=== PATIENT | female | born 1985 | race Caucasian/White ===

== ENCOUNTER 2025-01-17 06:47 | Day surgery (SDC) | payer OTHER ==
[2025-01-15 13:22] VITALS: BMI 25.4
[2025-01-15 13:33] LABS: Hematocrit 39.1 % (34.9-44.5); Hemoglobin 12.8 g/dL (12.0-15.5); Mean Corpuscular Hemoglobin 28.7 pg (27.0-33.0); Mean Corpuscular Volume 87.7 fL (81.6-98.3); Platelet Count 318 10x3/uL (150-450); Red Blood Cell (RBC) Count 4.46 10x6/uL (3.90-5.03); White Blood Cell (WBC) Count 5.77 10x3/uL (3.5-10.5)
[2025-01-15 13:42] LABS: BHCG - Serum Negative (NEGATIVE); Pregs Control Background? CLEAR/WHITE (CLR/WHITE); Pregs Control Bar Appear? YES (CONTROL BAR)
[2025-01-17] MEDS ORDERED: Gabapentin 300 MG CAP ONE (08:02)
[2025-01-17] MEDS ORDERED: Famotidine/PF 20 mg/2ml Vial ONE (08:02)
[2025-01-17] MEDS ORDERED: metroNIDAZOLE 500 MG (100 mL) BAG ONE (08:02)
[2025-01-17] MEDS ORDERED: SUGAMMADEX SODIUM 200 MG/2 ML VIAL ONE (08:25)
[2025-01-17] MEDS ORDERED: diphenhydrAMINE 50 MG/ML VIAL ONE (08:25)
[2025-01-17] MEDS ORDERED: Rocuronium Bromide 10 MG/ML (10ML VIAL) ONE (08:25)
[2025-01-17] MEDS ORDERED: PROPOFOL 20 ML ONE (08:25)
[2025-01-17] MEDS ORDERED: MINERAL OIL/WHITE PETROLATUM 3.5 GM TUBE ONE (08:29)
[2025-01-17] MEDS ORDERED: CEFAZOLIN 2 GM VIAL ONE (09:03)
[2025-01-17] MEDS ORDERED: PHENYLEPHRINE-NS 100 MCG/ML 10 ML SYRINGE ONE (09:25)
[2025-01-17] MEDS ORDERED: HYDROmorphone 0.5 MG/0.5 ML SYRINGE ONE ×2 (10:52→11:17)
[2025-01-17] MEDS ORDERED: HYDROcodone/Acetaminophen 5/325 mg Tablet ONE (11:57)
== END 2025-01-17 13:42 | disposition home or self-care (01) ==
LOC: CSHSDC 06:47
PROVIDERS: ATTEND Student in an Organized Health Care Education/Training Program
DX: N72 Inflammatory disease of cervix uteri (principal); N88.8 Other specified noninflammatory disorders of cervix uteri; Z91.040 Latex allergy status; Z88.2 Allergy status to sulfonamides; Z88.1 Allergy status to other antibiotic agents; Z91.048 Other nonmedicinal substance allergy status
CPT/HCPCS: 84703; 85027; 86850; 86900; 86901; 88307; J1100; J1171; J1200; J1308; J2250; J2704

== ENCOUNTER 2025-01-31 11:15 | Outpatient (CLI) | payer OTHER | END 2025-01-31 11:16 | disposition home or self-care (01) | LOC: CSHULT 11:15 | PROVIDERS: ATTEND Nurse Practitioner Women's Health | DX: R92.8 Other abnormal and inconclusive findings on diagnostic imaging of breast (principal) ==